=== PATIENT | male | born 1975 | race Caucasian/White ===

== ENCOUNTER 2024-02-11 13:10 | Day surgery (SDC) | payer OTHER ==
[2024-02-11] MEDS ORDERED: Sodium Chloride 0.9(Preservative Free) 10 ML IJ ONE (13:11)
[2024-02-11] MEDS ORDERED: Decadron 4 MG INJ IV ONE (13:11)
[2024-02-11] MEDS ORDERED: LIDOCAINE HCL 1% 50 MG/5 ML VL PF IJ ONE (13:11)
[2024-02-11] MEDS ORDERED: Lactated Ringers 1,000 ML IV ONE (15:33)
--- NOTE | 2024-02-11 20:06 | XRAY ---
Indication: Right L4-S1 transforaminal ALEJO Intraoperative fluoroscopy provided for 42 seconds. 6 digital spot image submitted for interpretation demonstrates posterior needle tips projecting over the expected right L4 and L5 nerve roots. Small amount of contrast injected for needle tip placement. Correlate with intraoperative findings/report.
--- NOTE | 2024-02-11 20:10 | XRAY ---
Indication: Right piriformis injection Intraoperative fluoroscopy provided for 13 seconds. Single digital spot image submitted for interpretation demonstrates posterior needle tip projecting over the right piriformis. Small amount of contrast injected for needle tip placement. Correlate with intraoperative findings/report.
--- NOTE | 2024-02-13 14:55 | XRAY ---
42 seconds of fluoroscopy used in surgery for a right L4-S1 transforaminal ALEJO.
--- NOTE | 2024-02-13 14:55 | XRAY ---
13 seconds of fluoroscopy used in surgery for a right piriformis injection.
== END 2024-02-11 16:05 | disposition home or self-care (01) ==
LOC: SDC-PAIN 13:10
PROVIDERS: ATTEND Psychiatry & Neurology Pain Medicine
DX: M54.16 Radiculopathy, lumbar region (principal); M79.18 Myalgia, other site
CPT/HCPCS: 20552; 64483; 64484; 72100; 72170; 76942; 77002; 77003; J1100; J2001; Q9966

== ENCOUNTER 2024-06-23 14:38 | Day surgery (SDC) | payer BC, OTHER ==
[2024-06-23] MEDS ORDERED: dexAMETHasone sodium phosphate IJ ONE (14:39)
[2024-06-23] MEDS ORDERED: LIDOCAINE HCL 2% 100 MG/5 ML IJ ONE (14:39)
[2024-06-23] MEDS ORDERED: propofoL IV ONE (16:29)
--- NOTE | 2024-06-23 18:51 | XRAY ---
Indication: Left C3-C5 MBB. Intraoperative fluoroscopy provided for 24 seconds. 2 digital spot image submitted for interpretation demonstrates posterior needle tips projecting over expected left C3-C5 nerve roots. Correlate with intraoperative findings/report.
--- NOTE | 2024-06-23 19:09 | XRAY ---
24 seconds of fluoroscopy were used in surgery for a left C3-C5 MBB.
== END 2024-06-23 17:05 | disposition home or self-care (01) ==
LOC: SDC-PAIN 14:38
PROVIDERS: ATTEND Psychiatry & Neurology Pain Medicine
DX: M47.812 Spondylosis without myelopathy or radiculopathy, cervical region (principal)
CPT/HCPCS: 64490; 64491; 72040; 77002; J1100; J2704

== ENCOUNTER → 2024-08-04 | Day surgery (SDC) | payer BC, OTHER ==
[~2024-08-04] MED LIST: BUPIVACAINE 0.5% VIAL IJ ONE; Lactated Ringers 500 ML IV ONE; propofoL IV ONE
--- NOTE | 2024-08-04 13:34 | XRAY ---
Indication: Left C3-C5 MBB. Intraoperative fluoroscopy provided for 20 seconds. 2 digital spot image submitted for interpretation demonstrates posterior needle tips projecting over expected left C3-C5 nerve roots. Correlate with intraoperative findings/report.
--- NOTE | 2024-08-04 14:44 | XRAY ---
20 seconds of fluoroscopy was used in surgery for a left C3-C5 MBB.
== END ==
LOC: SDC-PAIN 10:38
PROVIDERS: ATTEND Psychiatry & Neurology Pain Medicine
DX: M47.812 Spondylosis without myelopathy or radiculopathy, cervical region (principal)
CPT/HCPCS: 64490; 64491; 72040; 77002; J2704

== ENCOUNTER 2024-09-01 10:56 | Day surgery (SDC) | payer BC, OTHER ==
[2024-09-01] MEDS ORDERED: dexAMETHasone sodium phosphate IJ ONE (10:57)
[2024-09-01] MEDS ORDERED: LIDOCAINE HCL 1% AMPUL 5 ML IJ ONE (10:57)
[2024-09-01] MEDS ORDERED: BUPIVACAINE 0.5% VIAL IJ ONE (10:57)
[2024-09-01] MEDS ORDERED: Lactated Ringers 500 ML IV ONE (12:15)
[2024-09-01] MEDS ORDERED: propofoL IV ONE ×2 (13:38→13:47)
[2024-09-01] MEDS ORDERED: Versed 2 MG/2 ML Injection ONE (13:39)
--- NOTE | 2024-09-01 14:58 | XRAY ---
Indication: Left C3-C5 RFA. Intraoperative fluoroscopy provided for 23 seconds. 4 digital spot image submitted for interpretation demonstrates posterior needle tips projecting over expected left C3-C5 nerve roots. Correlate with intraoperative findings/report.
--- NOTE | 2024-09-01 14:59 | XRAY ---
23 seconds of fluoroscopy was used in surgery for a left C3-C5 RFA.
== END 2024-09-01 14:28 | disposition home or self-care (01) ==
LOC: SDC-PAIN 10:56
PROVIDERS: ATTEND Psychiatry & Neurology Pain Medicine
DX: M47.812 Spondylosis without myelopathy or radiculopathy, cervical region (principal)
CPT/HCPCS: 64633; 64634; 72040; J1100; J2250; J2704